=== PATIENT | female | born 1940 | race Caucasian/White ===

== ENCOUNTER 2016-10-20 19:31 | Inpatient (IN) ==
[2016-10-20] MEDS ORDERED: hydrALAZINE 20 MG/1 ML VIAL ONE (20:25)
[2016-10-20] MEDS ORDERED: hydrALAZINE 20 MG/1 ML VIAL IV STA (20:26)
[2016-10-20] MEDS ORDERED: NITROGLYCERIN 2% OINT 1 INCH/GM PACK TOP STA (20:28)
[2016-10-20 20:30] LABS: Basophils % 0.6 % (0.0-0.8); Eosinophils # 0.1 10*3/uL (0.0-0.87); Hematocrit 37.3 VOL% (35.7-47.0); Immature Granulocytes % 0.6 %; Immature Granulocytes Absolute 0.03 #; Lymphocytes # 1.5 10*3/uL (1.4-4.0); Lymphocytes % 29.9 % (21.3-54.2); Mean Corpuscular HGB Conc 37.5 GM/DL (32-36); Mean Corpuscular Hemoglobin 29 PG (27-34); Mean Platelet Volume 8.4 FL (9.6-12.0); Monocytes # 0.6 10*3/uL (0.11-0.8); Monocytes % 12.5 % (1.7-12.7); Neutrophils # 2.8 10*3/uL (1.4-7.4); Neutrophils % 55.4 % (38.7-73.9); Platelet Count 344 T/CUMM (130-400); Red Blood Count 4.78 MC/CUMM (3.8-5.5); Red Cell Distribution Width 12.8 % (9.3-17.3)
[2016-10-20] MEDS ORDERED: NITROGLYCERIN 2% OINT 1 INCH/GM PACK TOP ONE (20:34)
--- NOTE | 2016-10-20 20:34 | Emergency Department Note ---
Krishna Gamboa Rolonda, am scribing for, and in the presence of, Edward Toth MD 20:33. Janey Gamboa Charles R, MD, personally performed the services described in this documentation, ascribed by Beth Keller in my presence, and it is both accurate and complete . Arrival - Arrival Chief Complaint: Blood Pressure Stated Complaint: ELEVATED BLOOD PRESSURE ED Nursing Triage Note: Patient states that her blood pressure has been elevated and she has been having headaches. Patient states that this is her third visit this week for her blood pressure and patient has not had any change in blood pressure. States that she has a follow up appointment with Dr. Waite tomorrow but could not wait that long. Hx of anuerysm of parietal lobe. Patient awake, alert oriented and able to answer questions upon triage. Mode of Arrival: Wheelchair Limitations: No Limitations Source: Patient, Family (daughters), Old Records Reviewed, RN Notes Reviewed Time Seen by Provider: 10/20/16 19:56 - History of Present Illness HPI Narrative: Pt is a 76 y/o female who presents to the ED via wheelchair with a c/o of HTN with an onset of initially x6 days ago and reoccurring x2 days ago. Pt has a PMHx of HTN and is currently out of medications. Pt states that she visited the ED two times in the past week receiving Trandate IV on both occasions. Pt states that the medication made her woozy and felt as if her whole body had fallen to the floor. Pt's daugter made a phone call to another family member who confirmed that the pt was taken off of Clonidine resulting in anxiety and insomnia. Pt's daughter also stated that pt has aneurysm. Pt. states that she has an upcoming appointment with Dr. Waite but needed to come to the ED for immediate care. Pt confirms changing medications and getting sleep at night. Pt denies stress and intake of large amount of salt. No other complaint/pain reported by the pt. Onset (ago): day(s) Consistency: constant Severity: moderate Date of Last Menstrual Period: menopause Allergies/Adverse Reactions: Allergies Allergy/AdvReac Type Severity Reaction Status Date / Time ceftriaxone [From Rocephin] Allergy Mild RASH Verified 08/01/16 08:34 sulfamethoxazole Allergy Mild RASH Verified 08/01/16 08:34 [From Bactrim] trimethoprim [From Bactrim] Allergy Mild RASH Verified 08/01/16 08:34 Home Medications: Home Medications Medication Instructions Recorded Confirmed Type Aspirin EC Tab 81 mg PO QAM 05/20/15 10/20/16 History Metformin HCl [Metformin HCl ER] 1,000 mg PO BID 05/20/15 10/20/16 History Potassium Chloride 20 meq PO QAM 05/20/15 10/20/16 History Valsartan/Hydrochlorothiazide 1 each PO QAM 05/20/15 10/20/16 History [Diovan Hct 320-25 mg Tablet] dilTIAZem HCl [Cartia XT] 300 mg PO QAM 10/18/16 10/20/16 History Magnesium Chloride [Slow Mag] 64 mg PO BID #30 tablet 10/20/16 Rx Nebivolol [Bystolic] 10 mg PO DAILY #30 tablet 10/20/16 Rx Review of System - Review of System 12 point system: reviewed and no additional remarkable complaints except as stated - Review of System Constitutional: Absent: chills Eyes: Absent: discharge Head/Ears/Nose/Throat: Absent: earache Respiratory: Absent: cough Cardiovascular: Absent: chest pain Gastrointestinal: Absent: abdominal pain Genitourinary female: Absent: abnormal menses Musculoskeletal: Absent: arm pain Skin: Absent: rash Neurological: Present: vertigo (felt woozy) Psychiatric: Present: anxiety (while taking Clonidine) Endocrine: Absent: cold intolerance Hematological/Lymphatic: Absent: easy bleeding Allergic/Immunologic: Absent: facial swelling Medical,Surgical,& Family Hx - Medical History Cardio: History of: Hypertension HEENT: History of: Ear Problem (Bilateral Hearing Aides), Eye Problem (Glasses/ Cataracts), Dental Problems (Full Dentures) Endocrine: History of: Diabetes Mellitus (NIDDM) Respiratory: Comment Only: Respiratory Problems (Flu Vac Jan or Mar 2015; Pneum Vac Current?) Gastrointestinal: No history of: Polyps Musculoskeletal: History of: Musculoskeletal Problems (OA Knees-Need Replaced per pt) Hematology: No history of: Blood Transfusion Reaction (x1 19 years old) Other: No history of: Anesthesia Reactions, Cancer - Surgical History HEENT Surgeries: Surgical HX of: Eye Surgery (05/21/15 Sched for Cataract Rt) Abdominal Surgeries: Surgical HX of: Colonoscopy Orthopedic Surgeries: Surgical HX of;: Orthopedic Surgery (?Knee Scope Lt) - Family History Family History: Reports;: Family Diabetes (mother), Family Hypertension (mother) , Family Stroke (mother) - Social History Smoking Status: Never smoker Frequency of Alcohol Use: None Type of Drug Use: None Exam Vital Signs: Vital Signs Temperature 97.1 F L 10/20/16 20:20 Pulse Rate 69 10/20/16 20:20 Respiratory Rate 20 10/20/16 20:20 Blood Pressure 188/89 10/20/16 20:20 O2 Sat by Pulse Oximetry 100 10/20/16 19:48 - General General appearance: alert, in no apparent distress - Head Head exam: Present: atraumatic, normocephalic - Eye Eye exam: Present: normal appearance, PERRL, EOMI - ENT ENT exam: Present: normal exam, normal oropharynx, mucous membranes moist. Absent: mucous membranes dry - Neck Neck exam: Present: normal inspection, full ROM. Absent: tenderness - Chest Chest inspection: Present: normal inspection, symmetric chest wall rise. Absent : tenderness - Respiratory Respiratory exam: Present: normal lung sounds bilaterally. Absent: wheezes - Cardiovascular Cardiovascular exam: Present: regular rate, normal rhythm, normal heart sounds. Absent: bradycardia - Abdominal Exam Abdominal exam: Present: soft, normal bowel sounds. Absent: tenderness - Extremities Exam Extremities exam: Present: normal inspection, full ROM. Absent: tenderness - Back Exam Back exam: Present: normal inspection, full ROM. Absent: tenderness - Neurological Exam Neurological exam: Present: alert, oriented X3, CN II-XII intact - Psychiatric Psychiatric exam: Present: normal affect, normal mood. Absent: depressed - Skin Skin exam: Present: other (flushed). Absent: warm, dry Course Course Narrative: Patient was given hydralazine 10 mg which she tolerated well. Patient's blood pressure came down to respectable range she feels much better we will discharge her home. We replaced her magnesium and potassium she chronically has low sodium Results - Labs CBC & BMP: 10/20/16 20:10 10/20/16 20:10 Lab Results: I have reviewed the patients labs Labs: Laboratory Tests 10/20/16 20:10 WBC 5.0 RBC 4.78 Hgb 14.0 Hct 37.3 MCV 78.0 L MCHC 37.5 H Plt Count 344 MPV 8.4 L Microbiology 06/21/17 20:35 Throat Group A Streptococcus Rapid Screen - Final Negative for Grp A Strep Ag Laboratory Tests 10/20/16 20:10 Sodium 122 L Potassium 3.4 L Chloride 85 L BUN 12 GFR Calculation 70 Glucose 110 H Calculated Osmolality 245.9 L Magnesium 1.4 L Globulin 3.7 H Albumin/Globulin Ratio 1.0 L TSH 3rd Generation 4.740 H Disposition Clinical Impression: Uncontrolled hypertension, Hypomagnesemia, Hypokalemia, Hyponatremia Case discussed with: patient, patient's family Disposition: Disch To Home/Self Care Condition: Stable Instructions: Hypertensive Crisis (ED), Chronic Hypertension (ED) Additional Instructions: From the ER for acute changes. Follow-up primary care doctor. Prescriptions: Magnesium Chloride [Slow Mag] 64 mg PO BID #30 tablet Nebivolol [Bystolic] 10 mg PO DAILY #30 tablet Time of Disposition: 21:33 Contact your physician if you experience:: fever over 101, Difficulty voiding, Redness or swelling, Nausea/Vomiting, Shortness of breath, Bleeding, pain uncontrolled by pain medications, Other Return to the Emergency Department if:: fever over 101, Difficulty voiding, Redness or swelling, Nausea/Vomiting, Shortness of breath, Bleeding, pain uncontrolled by pain medications, Other
[2016-10-20 21:01] LABS: Alanine Aminotransferase 23 U/L (13-56); Albumin 3.9 G/DL (3.4-5.0); Alkaline Phosphatase 99 U/L (45-117); Aspartate Amino Transferase 19 U/L (0-37); Blood Urea Nitrogen 12 MG/DL (7-18); Free T4 (Free Thyroxine) 1.36 NG/DL (0.76-1.46); Glucose 110 MG/DL (74-106); Magnesium 1.4 MG/DL (1.8-2.4); Osmolality,Calculated 245.9 MOS/KG (273-304); Potassium 3.4 MMOL/L (3.5-5.1); Sodium 122 MMOL/L (136-145); Total Protein 7.6 G/DL (6.4-8.3); Troponin I Only < 0.015 NG/ML (0.00-0.045)
[2016-10-20] MEDS ORDERED: MAGNESIUM SULF RIDER 2 GM in PREMIX 1 EACH IV STA (21:28)
[2016-10-20] MEDS ORDERED: POTASSIUM CHLORIDE 20 MEQ TABLET PO STA (21:28)
[2016-10-20] MEDS ORDERED: MAGNESIUM SULF RIDER 50 ML IV ONE (21:35)
[2016-10-20] MEDS ORDERED: POTASSIUM CHLORIDE 20 MEQ TABLET PO ONE (21:35)
[2016-10-20] MEDS ORDERED: ONDANSETRON ODT 4 MG TABLET PO ONE (22:07)
[2016-10-20] MEDS ORDERED: HYDROCORTISONE 100 MG VIAL IV STA (22:48)
--- NOTE | 2016-10-20 22:51 | Event Note ---
Patient was being discharged she was no acute distress she went to the bathroom prior to discharge and had a syncope episode. Patient was diaphoretic her blood sugar is 134 her blood pressure was 90s over 40s. Patient has no neurological deficits no stroke symptoms. Patient's breathing has a heart rate. She is weak feeling. We are going to admit her to the hospital now instead of discharge her home. She has a long-standing history of hyponatremia I am going to treat her for possibly adrenal insufficiency CT head negative Dr. Praveena Spencer will admit patient for Dr. Edmond Waite
[2016-10-20 23:11] LABS: Apearance,Urine CLEAR (Clear); Bilirubin,Urine Negative (Negative); Blood, Urine Negative (Negative); Glucose,Urine (UA) Negative (Negative); Ketones,Urine Negative (Negative); Mucus,Urine Occasional /LPF (Occasional); Nitrite,Urine Negative (Negative); Protein,Urine 100 MG/DL; RBC,Urine 1 /HPF (0-4); Urine Color Straw (Yellow); Urine Specific Gravity 1.005 (1.001-1.035); Urine Urobilinogen < 2.0 EU/DL (0.2-1.0); WBC,Urine <1 /HPF (0-6)
[2016-10-20 23:13] LABS: Basophils % 0.4 % (0.0-0.8); Eosinophils # 0.1 10*3/uL (0.0-0.87); Eosinophils % 1.3 % (0.00-10.9); Hematocrit 35.4 VOL% (35.7-47.0); Hemoglobin 12.8 GM/DL (12.0-16.0); Immature Granulocytes % 0.7 %; Immature Granulocytes Absolute 0.05 #; Lymphocytes # 2.4 10*3/uL (1.4-4.0); Lymphocytes % 35.1 % (21.3-54.2); Mean Corpuscular HGB Conc 36.2 GM/DL (32-36); Mean Corpuscular Hemoglobin 28 PG (27-34); Mean Corpuscular Volume 78.3 FL (87-102); Mean Platelet Volume 9.4 FL (9.6-12.0); Monocytes # 0.9 10*3/uL (0.11-0.8); Monocytes % 12.4 % (1.7-12.7); Neutrophils # 3.4 10*3/uL (1.4-7.4); Neutrophils % 50.1 % (38.7-73.9); Platelet Count 310 T/CUMM (130-400); Red Blood Count 4.52 MC/CUMM (3.8-5.5); Red Cell Distribution Width 12.9 % (9.3-17.3); White Blood Count 6.8 T/CUMM (4-12)
[2016-10-20 23:27] LABS: Albumin 3.5 G/DL (3.4-5.0); Bilirubin,Total 0.4 MG/DL (0.2-1.0); Calcium 8.6 MG/DL (8.5-10.1); Magnesium 2.4 MG/DL (1.8-2.4); Osmolality,Calculated 244.1 MOS/KG (273-304); Potassium 3.6 MMOL/L (3.5-5.1); Total Protein 6.7 G/DL (6.4-8.3)
[2016-10-20 23:29] LABS: Troponin I Only < 0.015 NG/ML (0.00-0.045)
[2016-10-21] MEDS ORDERED: HYDROCORTISONE 100 MG VIAL ONE (00:09)
[2016-10-21] MEDS ORDERED: DEXTROSE 50% 25 GM/50 ML VIAL IV PRN (00:53)
[2016-10-21] MEDS ORDERED: GLUCAGON 1 MG VIAL IM PRN (00:53)
[2016-10-21] MEDS ORDERED: ONDANSETRON 4 MG/2 ML VIAL IV PRN (00:53)
[2016-10-21] MEDS ORDERED: MORPHINE 2 MG/1 ML SYRINGE IV PRN (00:53)
[2016-10-21] MEDS ORDERED: ACETAMINOPHEN 325 MG TABLET PO PRN (00:53)
--- NOTE | 2016-10-21 04:28 | EKG Report ---
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
[2016-10-21 04:56] LABS: Basophils % 0.4 % (0.0-0.8); Hematocrit 35.3 VOL% (35.7-47.0); Immature Granulocytes % 0.6 %; Immature Granulocytes Absolute 0.03 #; Lymphocytes # 0.6 10*3/uL (1.4-4.0); Lymphocytes % 12.9 % (21.3-54.2); Mean Corpuscular HGB Conc 36.8 GM/DL (32-36); Mean Corpuscular Hemoglobin 28 PG (27-34); Mean Corpuscular Volume 77.2 FL (87-102); Mean Platelet Volume 8.8 FL (9.6-12.0); Monocytes # 0.2 10*3/uL (0.11-0.8); Monocytes % 3.8 % (1.7-12.7); Neutrophils # 3.9 10*3/uL (1.4-7.4); Neutrophils % 82.3 % (38.7-73.9); Platelet Count 325 T/CUMM (130-400); Red Blood Count 4.57 MC/CUMM (3.8-5.5); Red Cell Distribution Width 13.1 % (9.3-17.3); White Blood Count 4.8 T/CUMM (4-12)
[2016-10-21 05:14] LABS: Troponin I Only < 0.015 NG/ML (0.00-0.045)
[2016-10-21 05:15] LABS: Albumin 3.6 G/DL (3.4-5.0); Bilirubin,Total 0.7 MG/DL (0.2-1.0); Calcium 8.9 MG/DL (8.5-10.1); Osmolality,Calculated 250.6 MOS/KG (273-304); Potassium 3.7 MMOL/L (3.5-5.1); Risk Ratio 3.05; Total Protein 6.7 G/DL (6.4-8.3); VLDL CHOLESTEROL 13.6 MG/DL
[2016-10-21] MEDS: SODIUM CHLORIDE 0.9% 1,000 ML IV SCH ×3 (05:48→22:59)
--- NOTE | 2016-10-21 06:29 | CT Report ---
History: Syncope and collapse Date: 10/20/2016 Study: CT head without contrast Comparison exam: October 18, 2016 The study was also reviewed by [facility]. Transaxial CT sections were obtained through the head without IV contrast. This CT exam was performed using one or more the following dose reduction techniques: Automated exposure control, adjustment of the MA and/or KV according to patient size, or use of iterative reconstruction technique. The ventricles are midline in position without evidence of hydrocephalus. There is no area of mass effect or parenchymal hemorrhage. There is no gross CT evidence of acute cortical stroke. There is no extra-axial hematoma. There is no acute abnormality of the calvarium. The mastoid air cells are clear. No fluid levels are noted in the visualized sinuses. Impression: No acute intracranial process compared to the previous study PROCEDURE INTERPRETED AT [facility] DEPARTMENT OF RADIOLOGY Final Report Signed by: Dr. Natividad Wallace
--- NOTE | 2016-10-21 07:52 | Family Practice History&Phys ---
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 Workup for her hypertension is also underway. Current Visit: Yes (2) Hyponatremia Status: Acute Assessment and plan: 10/21/2016: Serum and urine sodium has been ordered. Osmolality of the urine and 7 were also ordered. Renal ultrasound has been ordered as well as metanephrines. Current Visit: Yes History of Present Illness Chief complaint: Syncope History of present illness: Ms. Acosta is a 76 year old female Patient 76-year-old white female who has had labile hypertension. She presented emergency room with systolic over 200 and normal diastolic blood pressure. Patient was given IV hydralazine and had a syncopal episode with hypotension afterwards. Patient does have low serum sodium which is been long- standing observation. Patient states has not had any headaches with this she had no nausea vomiting with it. She did not perceive any palpitations and denies any chest pain. She been seen in the emergency room 3 times and it had a CT of the brain which revealed no acute abnormality. EKG was also unremarkable. Patient states is feeling much better this morning and certainly blood pressure is much improved. Her serum sodium was 121 when she arrived to the emergency room. Home Medications Medication Instructions Recorded Confirmed Type Aspirin EC Tab 81 mg PO [facility] 05/20/15 10/20/16 History Metformin HCl [Metformin HCl ER] 1,000 mg PO BID 05/20/15 10/20/16 History Potassium Chloride 20 meq PO QA 05/20/15 10/20/16 History Valsartan/Hydrochlorothiazide 1 each PO [facility] 05/20/15 10/20/16 History [Diovan Hct 320-25 mg Tablet] dilTIAZem HCl [Cartia XT] 300 mg PO QA 10/18/16 10/20/16 History Magnesium Chloride [Slow Mag] 64 mg PO BID #30 tablet 10/20/16 Rx Nebivolol [Bystolic] 10 mg PO DAILY #30 tablet 10/20/16 Rx Allergies Allergy/AdvReac Type Severity Reaction Status Date / Time ceftriaxone [From Rocephin] Allergy Mild RASH Verified 08/01/16 08:34 sulfamethoxazole Allergy Mild RASH Verified 08/01/16 08:34 [From Bactrim] trimethoprim [From Bactrim] Allergy Mild RASH Verified 08/01/16 08:34 - Constitutional Constitutional: Present: fatigue. Absent: chills, headache(s), weakness, weight gain, weight loss - EENT Eyes: Absent: blurry vision, loss of vision Ears: Absent: decreased hearing, ear pain Nose, mouth and throat: Absent: hoarseness, nasal congestion, sinus pressure, sore throat - Cardiovascular Cardiovascular: Absent: chest pain at rest, chest pain with activity, orthopnea , palpitations, PND - Respiratory Respiratory: Absent: cough, dyspnea, dyspnea on exertion, wheezing - Gastrointestinal Gastrointestinal: Absent: abdominal pain, diarrhea, hematemesis, hematochezia, melena, nausea, vomiting - Genitourinary Genitourinary: Absent: difficulty urinating, urinary frequency, urinary hesitancy - Musculoskeletal Musculoskeletal: Absent: arthralgias - Neurological Neurological: Absent: confusion, focal weakness, headache(s), numbness, paresthesias - Psychiatric Psychiatric: Absent: anxiety, confusion - Endocrine Endocrine: Present: fatigue. Absent: polydipsia, polyphagia - Hematologic/Lymphatic Hematologic/Lymphatic: Absent: easy bleeding, easy bruising Medical,Surgical,& Family Hx - Medical History Cardio: History of: Hypertension Neurology: History of: Brain Aneurysm HEENT: History of: Ear Problem (Bilateral Hearing Aides), Eye Problem (Glasses/ Cataracts), Dental Problems (Full Dentures) Endocrine: History of: Diabetes Mellitus (NIDDM) Respiratory: Comment Only: Respiratory Problems (Flu Vac Jan or Mar 2015; Pneum Vac Current?) Gastrointestinal: No history of: Polyps Musculoskeletal: History of: Musculoskeletal Problems (OA Knees-Need Replaced per pt) Hematology: No history of: Blood Transfusion Reaction (x1 19 years old) Other: No history of: Anesthesia Reactions, Cancer - Surgical History Neurologic Surgeries: Surgical HX of: Brain Aneurysm HEENT Surgeries: Surgical HX of: Eye Surgery (05/21/15 Sched for Cataract Rt) Abdominal Surgeries: Surgical HX of: Colonoscopy Orthopedic Surgeries: Surgical HX of;: Orthopedic Surgery (?Knee Scope Lt) - Family History Family History: Reports;: Family Diabetes (mother), Family Hypertension (mother) , Family Stroke (mother) - Social History Smoking Status: Never smoker Frequency of Alcohol Use: None Type of Drug Use: None Exam - Constitutional Vitals: Period Temp Pulse Resp BP Sys/Andrade Pulse Ox Last 24 Hr 96.4 F-98.2 F 69-70 16-20 138-188/70-89 100 Exam: General: Objective patient is a well-developed white female in no acute distress. Patient is able to give an excellent history. HEENT: Pupils equal and reactive to light. Patent nares and airway Neck: No meningismus, adenopathy, thyromegaly. There are no auscultated carotid bruits. Cardiovascular: Regular rhythm. No murmurs or gallops Chest: Clear to auscultation without rales rhonchi wheezes. Abdomen: Soft nontender to palpation No masses, rebound, guarding or tenderness. Neuro: Cranial nerves intact and DTRs and strength symmetric in all extremities. Dermatologic: No evidence of abnormal lesions or masses. Musculoskeletal: There is no joint swelling or tenderness or deformity. Extremities: There is no calf swelling or tenderness. Results - Labs CBC & BMP: 10/21/16 04:28 10/21/16 04:28 Lab Results: I have reviewed the past 24 hour labs Quality Measures - Stroke Symptom Onset Unknown: No
[2016-10-21] MEDS ORDERED: VALSARTAN/HCTZ 160-12.5 MG TABLET PO SCH (09:00)
[2016-10-21] MEDS: INSULIN REGULAR 100 UNIT/ML SUBCUT SCH ×4 (09:03→20:50)
[2016-10-21] MEDS: DOCUSATE SODIUM 100 MG CAPSULE PO SCH ×2 (09:04→20:50)
[2016-10-21] MEDS: POTASSIUM CHLORIDE 20 MEQ TABLET PO SCH (09:04)
[2016-10-21] MEDS: DILTIAZEM CD 300 MG CAPSULE PO SCH (09:04)
[2016-10-21] MEDS: ASPIRIN EC 81 MG TABLET PO SCH (09:04)
[2016-10-21] MEDS: ENOXAPARIN 40 MG/0.4 ML SYRINGE SUBCUT SCH (09:04)
[2016-10-21] MEDS: PANTOPRAZOLE 40 MG TABLET PO SCH (09:04)
--- NOTE | 2016-10-21 09:30 | Ultrasound Report ---
Exam: US renal Bilateral Date: 10/21/2016 7:44 AM Comparison: None Indication: Labile hypertension Technique:[Multiple transabdominal real-time scans were obtained kidneys. Color-flow scans obtained. Ultrasound images were captured and stored.] Findings: Right kidney measures 100 x 46 x 42 mm. Left kidney measures 100 x 53 x 46 mm. No mass or hydronephrosis. Color-flow documented kidneys. Impression: The kidneys are symmetric in size with no masses or hydronephrosis. PROCEDURE INTERPRETED AT [facility] DEPARTMENT OF RADIOLOGY Final Report Signed by: Dr. Yajaira Lawrence
--- NOTE | 2016-10-21 11:08 | XRay Report ---
History: Shortness of breath Date: 10/21/2016 Study: Chest x-ray PA and lateral Comparison exam: August 01, 2016 The cardiac silhouette is not enlarged. There is no mediastinal mass. The pulmonary vasculature is not engorged. The lungs are well-expanded and clear. There is no pleural effusion. There are some scattered emphysematous changes. There is no acute pulmonary infiltrate. There is moderate thoracic spondylosis. There is suspected osteopenia. Impression: No acute cardiopulmonary process. Chronic lung changes PROCEDURE INTERPRETED AT [facility] DEPARTMENT OF RADIOLOGY Final Report Signed by: Dr. Natividad Wallace
[2016-10-22] MEDS: SODIUM CHLORIDE 0.9% 1,000 ML IV SCH (05:25)
--- NOTE | 2016-10-22 07:43 | Discharge Summary ---
Hospital Course - Hospital Course Hospital Course: Patient 76-year-old white female presented emergency room with elevated blood pressure and weakness. She was given some IV hydralazine and developed hypotension. She had near syncopal episode with this and was admitted for further evaluation. Patient was noted to have hypoosmolar hyponatremia. Patient was noted to have a normal serum potassium and fasting cortisol level was normal. She was noted to be hypothyroid which could be playing a role in her hyponatremia. Patient's urine sodium and osmolarity were appropriate. She does have a long history of hyponatremia and I think she probably has a reset osmostat. Patient had a headache initially but her CT scan emergency room was unremarkable. Patient had no lateralizing neurological symptoms. Patient felt well and was anxious to go home. I will follow her up in office in 2 weeks time and repeat chemistries on her. I did start her on Synthroid and she did have an elevated TSH. Diagnosis - Discharge Diagnosis (1) Syncope Status: Acute (2) Hyponatremia Status: Acute Specialty Discharge - Follow Up or Referrals Discharge Plan - Discharge Data Disposition: Disch To Home/Self Care Condition at Discharge: Stable Discharge Diet: advance to your usual diet Activity: resume usual activities as tolerated Hygiene: no restrictions Weight Bearing at Discharge: full weight bearing Driving: no restrictions Contact your physician if you experience:: fever over 101 - Discharge Medications New Levothyroxine Tab [Synthroid Tab] 50 mcg PO DAILY@0700 #30 tablet Magnesium Chloride [Slow Mag] 64 mg PO BID #30 tablet Acetaminophen Tab [Tylenol Tab] 650 mg PO Q6H PRN tablet PRN Reason: Fever > 100.4 Or Headache Valsartan [Diovan] 320 mg PO DAILY #30 tablet Continue Aspirin EC Tab 81 mg PO QAM Potassium Chloride 20 meq PO QAM Metformin HCl [Metformin HCl ER] 1,000 mg PO BID dilTIAZem HCl [Cartia XT] 300 mg PO QAM Discontinued Valsartan/Hydrochlorothiazide [Diovan Hct 320-25 mg Tablet] 1 each PO QAM - Follow Up or Referral Follow Up: Edmond Waite MD [Physician] - 2 Weeks - Forms/Instructions Instructions: Chronic Hypertension (ED), Hypertensive Crisis (ED) Exam - Constitutional Vitals: Period Temp Pulse Resp BP Sys/Andrade Pulse Ox Last 24 Hr 97.2 F-98.5 F 65-88 18-20 132-165/65-83 95-100 Exam: General: Objective patient is a well-developed white female in no acute distress. Patient is able to give an excellent history. HEENT: Pupils equal and reactive to light. Patent nares and airway Neck: No meningismus, adenopathy, thyromegaly. There are no auscultated carotid bruits. Cardiovascular: Regular rhythm. No murmurs or gallops Chest: Clear to auscultation without rales rhonchi wheezes. Abdomen: Soft nontender to palpation No masses, rebound, guarding or tenderness. Neuro: Cranial nerves intact and DTRs and strength symmetric in all extremities. Dermatologic: No evidence of abnormal lesions or masses. Musculoskeletal: There is no joint swelling or tenderness or deformity. Extremities: There is no calf swelling or tenderness. Discharge Results Procedures and tests throughout hospitalization: Pending Orders 10/21/16 07:54 Metanephrines, Fract., Free, P Routine 10/22/16 07:20 BMP [Basic Metabolic Panel] Routine 10/23/16 04:00 BMP [Basic Metabolic Panel] IN AM Labs on day of discharge: Labs from last 24 hours 10/21/16 10/21/16 10/21/16 19:42 15:29 12:19 POC Glucose 192 H 106 145 H Cortisol 8am Sample Urine Osmolality Ur Random Sodium 10/21/16 10/21/16 10/21/16 10:30 07:54 07:48 POC Glucose Cortisol 8am Sample 24.5 H Urine Osmolality 348 Ur Random Sodium 12.0 10/21/16 07:41 POC Glucose 190 H Cortisol 8am Sample Urine Osmolality Ur Random Sodium DS: Provider Date of admission: 10/21/16 00:10 Primary care physician: . No PCP Attending physician on admission: Edmond Waite MD Consults: 10/21/16 00:53 Consult to Case Mgmt/Social Srvs [CONS] Routine Reason for Case Mgmt/Social Srvs: Discharge Planning Discharging clinician: Edmond Waite MD Expected date of discharge: 10/22/16
[2016-10-22 07:52] VITALS: BP 195/86
[2016-10-22 08:23] LABS: Calcium 8.5 MG/DL (8.5-10.1); Osmolality,Calculated 258.8 MOS/KG (273-304); Potassium 3.5 MMOL/L (3.5-5.1)
[2016-10-22] MEDS: ASPIRIN EC 81 MG TABLET PO SCH (08:49)
[2016-10-22] MEDS: POTASSIUM CHLORIDE 20 MEQ TABLET PO SCH (08:50)
[2016-10-22] MEDS: ENOXAPARIN 40 MG/0.4 ML SYRINGE SUBCUT SCH (08:50)
[2016-10-22] MEDS: PANTOPRAZOLE 40 MG TABLET PO SCH (08:50)
[2016-10-22] MEDS: DOCUSATE SODIUM 100 MG CAPSULE PO SCH (08:50)
[2016-10-22] MEDS: DILTIAZEM CD 300 MG CAPSULE PO SCH (08:51)
[2016-10-22] MEDS: INSULIN REGULAR 100 UNIT/ML SUBCUT SCH (08:51)
[2016-10-22] MEDS ORDERED: VALSARTAN 160 MG TABLET PO SCH (09:00)
[2016-10-23] MEDS ORDERED: LEVOTHYROXINE 50 MCG TABLET PO SCH (07:00)
[2016-10-26 11:45] LABS: Metanephrine, Free < 0.20 nmol/L (<0.50); Normetanephrine, Free 0.44 nmol/L (<0.90)
== END 2016-10-22 10:28 | disposition home or self-care (01) | DRG 641 ==
LOC: N.ED 19:31 → N.EDINP 10-21 00:10 → N.TELEN 10-21 00:28
PROVIDERS: ADMIT Family Medicine; ATTEND Family Medicine

== ENCOUNTER 2017-10-16 13:25 | Inpatient (IN) ==
[2017-10-16 13:56] LABS: Basophils % 0.7 % (0.0-0.8); Eosinophils # 0.1 10*3/uL (0.0-0.87); Hematocrit 40.1 VOL% (35.7-47.0); Hemoglobin 14.4 GM/DL (12.0-16.0); Immature Granulocytes % 0.5 %; Immature Granulocytes Absolute 0.03 #; Lymphocytes # 1.4 10*3/uL (1.4-4.0); Lymphocytes % 23.1 % (21.3-54.2); Mean Corpuscular HGB Conc 35.9 GM/DL (32-36); Mean Corpuscular Hemoglobin 29 PG (27-34); Mean Corpuscular Volume 81.5 FL (87-102); Mean Platelet Volume 8.9 FL (9.6-12.0); Monocytes # 0.5 10*3/uL (0.11-0.8); Monocytes % 8.6 % (1.7-12.7); Neutrophils # 3.9 10*3/uL (1.4-7.4); Neutrophils % 66.1 % (38.7-73.9); Platelet Count 333 T/CUMM (130-400); Red Blood Count 4.92 MC/CUMM (3.8-5.5); Red Cell Distribution Width 13.3 % (9.3-17.3); White Blood Count 5.9 T/CUMM (4-12)
[2017-10-16 14:09] LABS: Alanine Aminotransferase 18 U/L (13-56); Albumin 3.6 G/DL (3.4-5.0); Alkaline Phosphatase 89 U/L (45-117); Aspartate Amino Transferase 14 U/L (0-37); Blood Urea Nitrogen 10 MG/DL (7-18); Calcium 9.1 MG/DL (8.5-10.1); Glucose 129 MG/DL (74-106); Osmolality,Calculated 264.5 MOS/KG (273-304); Potassium 4.2 MMOL/L (3.5-5.1); Sodium 132 MMOL/L (136-145)
[2017-10-16 14:41] LABS: PT Patient Result 10.3 SECS; Partial Thromboplastin Time 27.7 SECS (0-40)
[2017-10-16] MEDS ORDERED: hydrALAZINE 20 MG/1 ML VIAL IV STA (14:41)
[2017-10-16 15:05] LABS: Free T4 (Free Thyroxine) 1.23 NG/DL (0.76-1.46); Thyroid Stimulating Hormone 1.11 uIU/ml (0.358-3.74)
[2017-10-16 15:08] LABS: Apearance,Urine CLEAR (Clear); Bilirubin,Urine Negative (Negative); Blood, Urine Negative (Negative); Glucose,Urine (UA) Negative (Negative); Ketones,Urine Negative (Negative); Mucus,Urine Occasional /LPF (Occasional); Nitrite,Urine Negative (Negative); Protein,Urine 100 MG/DL; Squamous Epithelial Cell,Urine Occasional /HPF (0-10); Urine Color Yellow (Yellow); Urine Specific Gravity 1.012 (1.001-1.035); Urine Urobilinogen < 2.0 EU/DL (0.2-1.0); WBC,Urine <1 /HPF (0-6)
[2017-10-16 15:12] LABS: Barbiturates Screen,Urine Negative (Negative); Benzodiazepines Screen,Urine Negative (Negative); Cannabinoid Screen,Urine Negative (Negative); Opiate Screen,Urine Negative (Negative); Phencyclidine Screen,Urine Negative (Negative)
[2017-10-16] MEDS ORDERED: ENOXAPARIN 60 MG/0.6 ML SYRINGE SUBCUT STA (17:08)
[2017-10-16] MEDS ORDERED: ONDANSETRON 4 MG/2 ML VIAL IV PRN (18:00)
[2017-10-16] MEDS ORDERED: ACETAMINOPHEN 325 MG TABLET PO PRN (18:00)
[2017-10-16] MEDS ORDERED: DEXTROSE 50% 25 GM/50 ML VIAL IV PRN (18:00)
[2017-10-16] MEDS ORDERED: PROMETHAZINE 25 MG/1 ML VIAL IM PRN (18:00)
[2017-10-16] MEDS ORDERED: GLUCAGON 1 MG VIAL IM PRN (18:00)
[2017-10-16] MEDS ORDERED: amLODIPine 5 MG TABLET PO ONE (18:25)
[2017-10-16] MEDS: DOCUSATE SODIUM 100 MG CAPSULE PO SCH (21:54)
[2017-10-16] MEDS: MAGNESIUM CHLORIDE 64 MG TABLET PO SCH (21:54)
[2017-10-16] MEDS: INSULIN REGULAR 100 UNIT/ML SUBCUT SCH (22:17)
[2017-10-17] MEDS: LEVOTHYROXINE 50 MCG TABLET PO SCH (06:28)
[2017-10-17] MEDS: INSULIN REGULAR 100 UNIT/ML SUBCUT SCH ×4 (08:09→20:35)
[2017-10-17] MEDS ORDERED: ASPIRIN EC 81 MG TABLET PO SCH (09:00)
[2017-10-17] MEDS ORDERED: amLODIPine 5 MG TABLET PO SCH (09:00)
[2017-10-17] MEDS: MAGNESIUM CHLORIDE 64 MG TABLET PO SCH ×2 (09:14→20:25)
[2017-10-17] MEDS: VALSARTAN 160 MG TABLET PO SCH (09:14)
[2017-10-17] MEDS: NEBIVOLOL 10 MG TABLET PO SCH (09:14)
[2017-10-17] MEDS: metFORMIN 500 MG TABLET PO SCH ×2 (09:15→16:36)
[2017-10-17] MEDS: PANTOPRAZOLE 40 MG TABLET PO SCH (09:15)
[2017-10-17] MEDS: DOCUSATE SODIUM 100 MG CAPSULE PO SCH ×2 (09:15→20:25)
[2017-10-17] MEDS: POTASSIUM CHLORIDE 20 MEQ TABLET PO SCH (09:15)
[2017-10-17] MEDS: amLODIPine 5 MG TABLET PO SCH ×2 (17:02→20:25)
[2017-10-17 18:57] LABS: Risk Ratio 3.95; VLDL CHOLESTEROL 36.2 MG/DL
[2017-10-17] MEDS ORDERED: ATORVASTATIN 10 MG TABLET PO SCH (21:00)
[2017-10-18] MEDS: LEVOTHYROXINE 50 MCG TABLET PO SCH (06:06)
[2017-10-18] MEDS: INSULIN REGULAR 100 UNIT/ML SUBCUT SCH ×2 (07:22→12:00)
[2017-10-18] MEDS ORDERED: CLOPIDOGREL 75 MG TABLET PO SCH (09:00)
[2017-10-18] MEDS: amLODIPine 5 MG TABLET PO SCH (09:10)
[2017-10-18] MEDS: PANTOPRAZOLE 40 MG TABLET PO SCH (09:10)
[2017-10-18] MEDS: metFORMIN 500 MG TABLET PO SCH (09:10)
[2017-10-18] MEDS: MAGNESIUM CHLORIDE 64 MG TABLET PO SCH (09:10)
[2017-10-18] MEDS: NEBIVOLOL 10 MG TABLET PO SCH (09:10)
[2017-10-18] MEDS: POTASSIUM CHLORIDE 20 MEQ TABLET PO SCH (09:10)
[2017-10-18] MEDS: VALSARTAN 160 MG TABLET PO SCH (09:14)
[2017-10-18] MEDS: DOCUSATE SODIUM 100 MG CAPSULE PO SCH (09:15)
[2017-10-18 12:02] VITALS: BP 157/82
== END 2017-10-18 13:45 | disposition home health service (06) | DRG 65 ==
LOC: N.ED 13:25 → N.EDINP 17:03 → N.2E 17:32
PROVIDERS: ADMIT Family Medicine; ATTEND Family Medicine

== ENCOUNTER 2018-04-17 11:34 | Observation (INO) ==
[2018-04-17] MEDS ORDERED: SODIUM CHLORIDE 0.9% 500 ML IV STA (12:26)
[2018-04-17 13:01] LABS: Basophils % 0.8 % (0.0-0.8); Eosinophils % 0.8 % (0.00-10.9); Hematocrit 39.2 VOL% (35.7-47.0); Hemoglobin 13.2 GM/DL (12.0-16.0); Immature Granulocytes % 0.6 %; Immature Granulocytes Absolute 0.03 #; Lymphocytes # 0.9 10*3/uL (1.4-4.0); Lymphocytes % 19.6 % (21.3-54.2); Mean Corpuscular HGB Conc 33.7 GM/DL (32-36); Mean Corpuscular Hemoglobin 28 PG (27-34); Mean Corpuscular Volume 83.4 FL (87-102); Mean Platelet Volume 9.2 FL (9.6-12.0); Monocytes # 0.6 10*3/uL (0.11-0.8); Monocytes % 13.1 % (1.7-12.7); Neutrophils # 3.1 10*3/uL (1.4-7.4); Neutrophils % 65.1 % (38.7-73.9); Platelet Count 386 T/CUMM (130-400); Red Cell Distribution Width 13.7 % (9.3-17.3); White Blood Count 4.8 T/CUMM (4-12)
[2018-04-17 13:22] LABS: PT Patient Result 11.2 SECS
[2018-04-17 13:31] LABS: Alanine Aminotransferase 14 U/L (13-56); Albumin 3.8 G/DL (3.4-5.0); Alkaline Phosphatase 106 U/L (45-117); Aspartate Amino Transferase 13 U/L (0-37); Blood Urea Nitrogen 14 MG/DL (7-18); Calcium 9.5 MG/DL (8.5-10.1); Glucose 105 MG/DL (74-106); Osmolality,Calculated 255.2 MOS/KG (273-304); Potassium 4.2 MMOL/L (3.5-5.1); Sodium 127 MMOL/L (136-145); Total Protein 8.6 G/DL (6.4-8.3); Troponin I < 0.015 NG/ML (0.00-0.045)
[2018-04-17 14:04] LABS: Apearance,Urine CLEAR (Clear); Bilirubin,Urine Negative (Negative); Blood, Urine Negative (Negative); Glucose,Urine (UA) Negative (Negative); Hyaline Casts,Urine 1 /LPF (0-3); Ketones,Urine Negative (Negative); Nitrite,Urine Negative (Negative); Protein,Urine Negative; RBC,Urine <1 /HPF (0-4); Squamous Epithelial Cell,Urine Occasional /HPF (0-10); Urine Color Yellow (Yellow); Urine Specific Gravity 1.011 (1.001-1.035); Urine Urobilinogen < 2.0 EU/DL (0.2-1.0); WBC,Urine 1 /HPF (0-6)
[2018-04-17 14:58] LABS: Sedimentation Rate-Westergren 38 MM/HR (0-30)
[2018-04-17] MEDS ORDERED: DEXTROSE 50% 25 GM/50 ML VIAL IV PRN (16:23)
[2018-04-17] MEDS ORDERED: ONDANSETRON 4 MG/2 ML VIAL IV PRN (16:23)
[2018-04-17] MEDS ORDERED: ACETAMINOPHEN 325 MG TABLET PO PRN (16:23)
[2018-04-17] MEDS ORDERED: GLUCAGON 1 MG VIAL IM PRN (16:23)
[2018-04-17] MEDS: SODIUM CHLORIDE 0.9% 1,000 ML IV SCH (16:56)
[2018-04-17] MEDS: INSULIN REGULAR 100 UNIT/ML SUBCUT SCH (17:21)
[2018-04-17] MEDS: amLODIPine 5 MG TABLET PO SCH (17:43)
[2018-04-17] MEDS: MAGNESIUM CHLORIDE 64 MG TABLET PO SCH (21:00)
[2018-04-17] MEDS: APIXABAN 5 MG TABLET PO SCH (21:00)
[2018-04-17] MEDS: DOCUSATE SODIUM 100 MG CAPSULE PO SCH (21:00)
[2018-04-18] MEDS: INSULIN REGULAR 100 UNIT/ML SUBCUT SCH ×4 (01:02→18:37)
[2018-04-18 05:06] LABS: Basophils % 0.6 % (0.0-0.8); Eosinophils # 0.1 10*3/uL (0.0-0.87); Eosinophils % 1.4 % (0.00-10.9); Hematocrit 32.8 VOL% (35.7-47.0); Hemoglobin 11.5 GM/DL (12.0-16.0); Immature Granulocytes % 0.8 %; Immature Granulocytes Absolute 0.04 #; Lymphocytes # 1.2 10*3/uL (1.4-4.0); Lymphocytes % 24.7 % (21.3-54.2); Mean Corpuscular HGB Conc 35.1 GM/DL (32-36); Mean Corpuscular Hemoglobin 29 PG (27-34); Mean Corpuscular Volume 82.6 FL (87-102); Mean Platelet Volume 9.1 FL (9.6-12.0); Monocytes # 0.7 10*3/uL (0.11-0.8); Monocytes % 13.7 % (1.7-12.7); Neutrophils % 58.8 % (38.7-73.9); Platelet Count 328 T/CUMM (130-400); Red Blood Count 3.97 MC/CUMM (3.8-5.5); Red Cell Distribution Width 13.6 % (9.3-17.3)
[2018-04-18 05:26] LABS: Calcium 8.6 MG/DL (8.5-10.1); Osmolality,Calculated 259.7 MOS/KG (273-304); Potassium 4.3 MMOL/L (3.5-5.1)
[2018-04-18 05:29] LABS: Albumin 3.2 G/DL (3.4-5.0); Bilirubin,Total 0.6 MG/DL (0.2-1.0); Calcium 8.7 MG/DL (8.5-10.1); Osmolality,Calculated 260.7 MOS/KG (273-304); Potassium 4.3 MMOL/L (3.5-5.1); Total Protein 6.7 G/DL (6.4-8.3)
[2018-04-18] MEDS: LEVOTHYROXINE 50 MCG TABLET PO SCH (06:17)
[2018-04-18] MEDS: APIXABAN 5 MG TABLET PO SCH ×2 (08:24→21:40)
[2018-04-18] MEDS: PANTOPRAZOLE 40 MG TABLET PO SCH (08:24)
[2018-04-18] MEDS: amLODIPine 5 MG TABLET PO SCH ×2 (08:24→15:51)
[2018-04-18] MEDS: DOCUSATE SODIUM 100 MG CAPSULE PO SCH ×2 (08:24→22:41)
[2018-04-18] MEDS: MAGNESIUM CHLORIDE 64 MG TABLET PO SCH ×2 (08:24→21:40)
[2018-04-18] MEDS: LOSARTAN 50 MG TABLET PO SCH (08:25)
[2018-04-18] MEDS: POTASSIUM CHLORIDE 20 MEQ TABLET PO SCH (08:31)
[2018-04-18] MEDS ORDERED: LORazepam 0.5 MG TABLET PO PRN (08:43)
[2018-04-18] MEDS ORDERED: NEBIVOLOL 10 MG TABLET PO SCH (09:00)
[2018-04-18] MEDS ORDERED: SPIRONOLACTONE 25 MG TABLET PO SCH (09:00)
[2018-04-18 10:47] LABS: Apearance,Urine CLEAR (Clear); Bilirubin,Urine Negative (Negative); Blood, Urine Negative (Negative); Glucose,Urine (UA) Negative (Negative); Ketones,Urine Negative (Negative); Mucus,Urine Occasional /LPF (Occasional); Nitrite,Urine Negative (Negative); Protein,Urine Negative; RBC,Urine <1 /HPF (0-4); Squamous Epithelial Cell,Urine Occasional /HPF (0-10); Urine Color Yellow (Yellow); Urine Urobilinogen < 2.0 EU/DL (0.2-1.0); WBC,Urine 1 /HPF (0-6)
[2018-04-18] MEDS: metroNIDAZOLE 250 MG TABLET PO SCH ×2 (17:49→22:41)
[2018-04-18] MEDS: SODIUM CHLORIDE 0.9% 1,000 ML IV SCH (22:42)
[2018-04-19] MEDS: INSULIN REGULAR 100 UNIT/ML SUBCUT SCH ×2 (01:15→06:32)
[2018-04-19] MEDS: LEVOTHYROXINE 50 MCG TABLET PO SCH (06:31)
[2018-04-19 07:48] VITALS: BP 113/59
[2018-04-19] MEDS ORDERED: NEBIVOLOL 10 MG TABLET PO SCH (09:00)
[2018-04-19] MEDS: MAGNESIUM CHLORIDE 64 MG TABLET PO SCH (09:16)
[2018-04-19] MEDS: POTASSIUM CHLORIDE 20 MEQ TABLET PO SCH (09:16)
[2018-04-19] MEDS: PANTOPRAZOLE 40 MG TABLET PO SCH (09:16)
[2018-04-19] MEDS: metroNIDAZOLE 250 MG TABLET PO SCH (09:16)
[2018-04-19] MEDS: APIXABAN 5 MG TABLET PO SCH (09:16)
[2018-04-19] MEDS: DOCUSATE SODIUM 100 MG CAPSULE PO SCH (09:16)
[2018-04-19] MEDS: amLODIPine 5 MG TABLET PO SCH (09:17)
[2018-04-19] MEDS: LOSARTAN 50 MG TABLET PO SCH (09:21)
== END 2018-04-19 10:05 | disposition home or self-care (01) ==
LOC: N.EDINP 11:34 → N.ED 11:34 → N.5E 15:55
PROVIDERS: ADMIT Family Medicine; ATTEND Family Medicine